=== PATIENT | male | born 1960 | race Caucasian/White ===

== ENCOUNTER 2016-04-12 13:42 | Emergency (ER) | payer OTHER ==
[~2016-04-12] VITALS: Ht 167.6 cm; Wt 55.0 kg
[2016-04-12 13:56] LABS: GLUCOSE,POINT OF CARE 86 MG/DL (70-110)
[2016-04-12] MEDS ORDERED: HALO10 PO (14:02)
[2016-04-12] MEDS ORDERED: MORP20CA18 PO (14:02)
[2016-04-12] MEDS ORDERED: METO25 PO (14:02)
[2016-04-12] MEDS ORDERED: HYDR8TAB43 PO (14:02)
[2016-04-12] MEDS ORDERED: PANT40TA25 PO (14:02)
[2016-04-12 15:24] VITALS: BP 132/85
[2016-04-12] MEDS ORDERED: SODIUM CHLORIDE 0.9% 1,000 ML IV ONE (15:30)
[2016-04-12 15:50] LABS: BASOPHILS % (AUTO) 0.4 % (0.0-2.0); EOSINOPHILS % (AUTO) 1.1 % (1.0-6.0); HEMATOCRIT 42.5 % (41-53); HEMOGLOBIN 13.8 g/dL (13.5-17.5); LYMPHOCYTES # (AUTO) 2.1 K/uL (1.0-4.8); LYMPHOCYTES % (AUTO) 19.1 % (22.0-44.0); MEAN CORPUSCULAR HEMOGLOBIN 27.8 pg (26.0-34.0); MEAN CORPUSCULAR HGB CONC 32.4 G/dL (31.0-37.0); MEAN CORPUSCULAR VOLUME 86 fL (80-100); MONOCYTES # (AUTO) 0.6 K/uL (0.1-1.0); MONOCYTES % (AUTO) 5.1 % (2.0-9.0); NEUTROPHILS # (AUTO) 8.4 K/uL (1.8-7.7); NEUTROPHILS % (AUTO) 74.3 % (40.0-70.0); PLATELET COUNT (AUTO) 316 K/uL (150-450); RED BLOOD CELL COUNT(AUTO) 4.96 MIL/uL (4.50-5.90); RED CELL DISTRIBUTION WIDTH 20.8 % (11.5-14.5); WHITE BLOOD COUNT (AUTO) 11.3 K/uL (4.5-11.0)
[2016-04-12 16:04] LABS: ANION GAP 9 mmol/L (8-16); CALCIUM, TOTAL 8.9 mg/dL (8.8-10.5); CARBON DIOXIDE 29 mmol/L (22-29); CHLORIDE 102 mmol/L (98-107); CREATININE 0.57 mg/dL (0.60-1.30); GLOMERULAR FILTR. RATE CALC > 60 mL/min (>60); POTASSIUM 3.6 mmol/L (3.5-5.1); SODIUM SERUM 140 mmol/L (136-145); UREA NITROGEN, BLOOD 6 mg/dL (7-18)
[2016-04-12 16:10] LABS: ALANINE AMINOTRANSFERASE 188 U/L (12-78); ALBUMIN 3.2 g/dL (3.4-5.0); AMYLASE 59 U/L (25-115); ASPARTATE AMINOTRANSFERASE 132 U/L (15-37); BILIRUBIN,TOTAL 0.5 mg/dL (0.1-1.0); TOTAL PROTEIN, SERUM 7.5 g/dL (6.4-8.2)
[2016-04-12 16:38] LABS: APPEARANCE,URINE CLEAR (CLEAR); GLUCOSE, URINE (UA) NEGATIVE (NEGATIVE); KETONES,URINE NEGATIVE (NEGATIVE); LEUKOCYTE ESTERASE ,URINE NEGATIVE (NEGATIVE); OCCULT BLOOD,URINE NEGATIVE (NEGATIVE); PH,URINE 7.5 (5.0-8.0); PROTEIN,URINE NEGATIVE (NEGATIVE)
[2016-04-12 16:59] LABS: SQUAMOUS EPITHELIAL CELL,UR Rare /LPF (None Seen)
[2016-04-12 17:01] LABS: RBC,URINE None Seen /HPF (0-2); WBC,URINE 0-2 /HPF (0-5)
[2016-04-12 17:48] LABS: RBC MORPHOLOGY COMMENT ABNORMAL RBC MORPH
== END 2016-04-12 17:00 | disposition home or self-care (01) ==
LOC: EMS 13:44
DX: R53.81 Other malaise (principal); R53.83 Other fatigue; R42 Dizziness and giddiness; R25.1 Tremor, unspecified; J45.909 Unspecified asthma, uncomplicated; I10 Essential (primary) hypertension; Z86.73 Personal history of transient ischemic attack (TIA), and cerebral infarction without residual deficits
CPT/HCPCS: 36415; 80053; 81001; 82150; 82962; 83690; 85025; 93041; 96360; 96361; 99285; J7030